=== PATIENT | male | born 1960 | race Caucasian/White ===

== ENCOUNTER 2016-09-03 15:29 | Inpatient (IN) | payer OTHER ==
[~2016-09-03] VITALS: Ht 180.3 cm; Wt 79.8 kg
[~2016-09-03 15:29] MED LIST: ALEVE220 M1 PO; ASPIR-TRIN325 MG PO; BACTRIM,SEPT1 TABLET PO; CRESTOR20 MG PO; DOCUSATE CALCI240 MG PO; HYDROCODON-ACE1 EAC7 PO; LIDOCAINE HCL20 ML MM; MOTRIN IB200 MG PO; PRINZIDE 20-251 EACH PO; SENNA8.6 M1 PO; TRAMADOL HCL50 MG PO
[2016-09-03 16:10] LABS: HEMATOCRIT 46.3 % (38.0-50.0); MCH 31.8 PG (29.0-34.0); MCV 90.8 FL (86-99); MEAN PLAT.VOLUME 10.9 uM^3 (9.0-12.4); PLATELET COUNT 139 K/uL (156-360); RBC DIS.WIDTH-CV 13.2 % (11.8-14.6); RBC DIS.WIDTH-SD 44.5 % (39-53); WHITE BLOOD COUNT 6.3 K/uL (4.1-10.2)
[2016-09-03 16:19] LABS: CHLORIDE 105 mEq/L (99-109); POTASSIUM 3.8 mEq/L (3.7-5.4); SODIUM 138 mEq/L (136-147)
[2016-09-03 16:21] LABS: GLUCOSE 89 mg/dL (70-99)
[2016-09-03 16:22] LABS: ANION GAP 10 MEQ/L (2-14)
[2016-09-03 16:25] LABS: GFR ESTIMATE (CALCULATED) > 59 mL/min/
[2016-09-03 16:26] LABS: UREA NITROGEN (BUN) 11 mg/dL (9-23)
[2016-09-03 16:31] LABS: TROP-I INTERPRETATION NEGATIVE; TROPONIN-I 0.29 ng/mL (0.0-0.30)
[2016-09-03 18:13] LABS: TROP-I INTERPRETATION INDETERMINATE; TROPONIN-I 0.32 ng/mL (0.0-0.30)
[2016-09-03 21:00] VITALS: BP 165/92
[2016-09-03 23:35] LABS: TROP-I INTERPRETATION NEGATIVE; TROPONIN-I 0.28 ng/mL (0.0-0.30)
[2016-09-03 23:55] VITALS: BP 132/83
[2016-09-04] VITALS (7 sets, daily range): BP systolic 134–167; BP diastolic 81–107
[2016-09-04 06:24] LABS: HEMATOCRIT 46.9 % (38.0-50.0); MCH 31.7 PG (29.0-34.0); MCHC 34.1 G/DL (30.0-36.0); MCV 92.9 FL (86-99); MEAN PLAT.VOLUME 11.3 uM^3 (9.0-12.4); PLATELET COUNT 134 K/uL (156-360); RBC DIS.WIDTH-CV 13.7 % (11.8-14.6); RBC DIS.WIDTH-SD 46.9 % (39-53); RED BLOOD COUNT 5.05 M/uL (4.00-5.50)
[2016-09-04 06:45] LABS: ANION GAP 7 MEQ/L (2-14); CHLORIDE 106 MEQ/L (99-109); GFR ESTIMATE (CALCULATED) > 59 mL/min/; GLUCOSE 99 mg/dL (70-99); POTASSIUM 4.3 MEQ/L (3.7-5.4); SAMPLE HEMOLYSIS CHECK 0; SAMPLE ICTERIC CHECK 0; SAMPLE LIPEMIA CHECK 0; SODIUM 139 MEQ/L (136-147); UREA NITROGEN (BUN) 13 mg/dL (9-23)
[2016-09-04 07:08] LABS: TROP-I INTERPRETATION INDETERMINATE; TROPONIN-I 0.35 ng/mL (0.0-0.30)
[2016-09-05 04:01] VITALS: BP 118/71
[2016-09-05 05:28] LABS: BASOPHIL COUNT 0.1 K/uL (0-0.1); EOSINOPHIL (%) 5.7 % (0-5); EOSINOPHIL COUNT 0.2 K/uL (0-0.3); IMMATURE GRANULOCYTE (%) 0.2 % (0.0-0.7); INSTRUMENT ABS NEUTROPHIL CT 1.2 K/uL; LYMPHOCYTE COUNT 2.2 K/uL (1.0-2.8); MCH 31.2 PG (29.0-34.0); MCHC 34.1 G/DL (30.0-36.0); MCV 91.5 FL (86-99); MONOCYTE (%) 10.6 % (3-12); MONOCYTE COUNT 0.4 K/uL (0-0.8); NEUTROPHIL (%) 28.5 % (45-76); NEUTROPHIL COUNT 1.2 K/uL (1.8-6.4); PLATELET COUNT 133 K/uL (156-360); RBC DIS.WIDTH-CV 13.3 % (11.8-14.6); RBC DIS.WIDTH-SD 45.1 % (39-53); RED BLOOD COUNT 5.03 M/uL (4.00-5.50)
[2016-09-05 05:47] LABS: ANION GAP 7 MEQ/L (2-14); CHLORIDE 106 MEQ/L (99-109); GFR ESTIMATE (CALCULATED) > 59 mL/min/; GLUCOSE 94 mg/dL (70-99); HDL CHOLESTEROL 29 MG/DL (Desirable>=40); LDL CHOLESTEROL 177 mg/dL (Desirable<100); NON-HDL CHOLESTEROL 209 mg/dL (Desirable<160); SAMPLE HEMOLYSIS CHECK 0; SAMPLE ICTERIC CHECK 0; SAMPLE LIPEMIA CHECK 0; SODIUM 138 MEQ/L (136-147); TOTAL CHOLESTEROL 238 mg/dL (Desirable<200); TRIGLYCERIDES 158 MG/DL (Normal: <150); UREA NITROGEN (BUN) 11 mg/dL (9-23)
[2016-09-05 07:00] VITALS: BP 124/82
[2016-09-05 07:03] LABS: Estimated Average Glucose 117 mg/dL (70-123); HEMOGLOBIN A1c (GLYCOHEMOGLOB) 5.7 % HGB (Below 5.7)
[2016-09-05 08:02] VITALS: BP 121/84
[2016-09-05] MEDS ORDERED: LO-DOSE ASPIRIN81 M2 PO (08:08)
[2016-09-05] MEDS ORDERED: BRILINTA90 MG PO (08:08)
[2016-09-05] MEDS ORDERED: LIPITOR40 MG PO (08:08)
[2016-09-05] MEDS ORDERED: LOPRESSOR25 MG PO (08:08)
[2016-09-05 11:00] VITALS: BP 124/87
[2016-09-05 11:34] VITALS: BP 141/89
[2016-09-05] MEDS ORDERED: LISINOPRIL-HCT1 EAC3 PO (13:00)
[2016-09-05] MEDS ORDERED: ATORVASTATIN CA80 MG PO (13:00)
[2016-09-05] MEDS ORDERED: NITROSTAT0.4 MG SL (13:00)
[2016-09-05] MEDS ORDERED: NICOTINE PATCH1 EAC2 TD (13:00)
== END 2016-09-05 15:21 | disposition home or self-care (01) | DRG 247 ==
LOC: EME 15:29 → EDOF 19:07 → 4EAST 19:07
PROVIDERS: Emergency Medicine; Hospitalist; Internal Medicine
DX: I25.110 Atherosclerotic heart disease of native coronary artery with unstable angina pectoris (principal); D69.6 Thrombocytopenia, unspecified; E78.5 Hyperlipidemia, unspecified; F12.90 Cannabis use, unspecified, uncomplicated; F17.210 Nicotine dependence, cigarettes, uncomplicated; I10 Essential (primary) hypertension; I25.2 Old myocardial infarction; R73.03 Prediabetes; Z79.82 Long term (current) use of aspirin; Z79.899 Other long term (current) drug therapy; Z80.7 Family history of other malignant neoplasms of lymphoid, hematopoietic and related tissues; Z82.5 Family history of asthma and other chronic lower respiratory diseases; Z91.14 Patient's other noncompliance with medication regimen; Z95.5 Presence of coronary angioplasty implant and graft; M54.9 Dorsalgia, unspecified
CPT/HCPCS: 71020; 71275; 80048; 80061; 83036; 83735; 84484; 85025; 85027; 85347; 93005; 99281; 99285; C1725; C1769; C1874; C1887; J1644; J1650; J2250; J2270; J3010; J3246; J7030

== ENCOUNTER 2017-05-16 15:39 | Inpatient (IN) | payer OTHER ==
[~2017-05-16] VITALS: Ht 180.3 cm; Wt 84.7 kg
[~2017-05-16 15:39] MED LIST changes: +ATORVASTATIN CA80 MG PO; +BRILINTA90 MG PO; +LIPITOR40 MG PO; +LISINOPRIL-HCT1 EAC3 PO; +LO-DOSE ASPIRIN81 M2 PO; +LOPRESSOR25 MG PO; +NICOTINE PATCH1 EAC2 TD; +NITROSTAT0.4 MG SL
[2017-05-16] MEDS ORDERED: BUSPIRONE HCL10 MG PO (16:07)
[2017-05-16] MEDS ORDERED: METRONIDAZOLE500 MG PO (16:08)
[2017-05-16] MEDS ORDERED: LISINOPRIL-HCT1 EACH PO (16:09)
[2017-05-16] MEDS ORDERED: ESCITALOPRAM OX10 MG PO (16:10)
[2017-05-16 16:38] LABS: HEMATOCRIT 42.8 % (38.0-50.0); HEMOGLOBIN 15.4 G/DL (12.5-16.6); MCH 33.2 PG (29.0-34.0); MCV 92.2 FL (86-99); PLATELET COUNT 137 K/uL (156-360); RBC DIS.WIDTH-CV 12.9 % (11.8-14.6); RBC DIS.WIDTH-SD 43.4 % (39-53); RED BLOOD COUNT 4.64 M/uL (4.00-5.50); WHITE BLOOD COUNT 5.3 K/uL (4.1-10.2)
[2017-05-16 16:47] LABS: CHLORIDE 105 mEq/L (99-109); SODIUM 138 mEq/L (136-147)
[2017-05-16 16:48] LABS: GLUCOSE 119 mg/dL (70-99)
[2017-05-16 16:51] LABS: SERUM ETHYL ALCOHOL < 10 mg/dL
[2017-05-16 16:52] LABS: GFR ESTIMATE (CALCULATED) > 59 mL/min/ (58.99-99999)
[2017-05-16 16:53] LABS: UREA NITROGEN (BUN) 16 mg/dL (9-23)
[2017-05-16 17:30] LABS: APPEARANCE CLEAR ((CLEAR)); BILIRUBIN NEGATIVE; BLOOD NEGATIVE; COLOR YELLOW ((YELLOW)); GLUCOSE (STRIP) NEGATIVE; KETONES NEGATIVE; LEUKOCYTES SMALL; NITRITE NEGATIVE; PROTEIN (STRIP) NEGATIVE; SPECIFIC GRAVITY 1.024 (1.000-1.030)
[2017-05-16 17:37] LABS: BACTERIA NONE SEEN /HPF; EPITHELIAL CELLS RARE /HPF; HYALINE CASTS 0-5 /LPF; MUCUS TRACE /LPF; RED BLOOD CELLS 0-5 /HPF (0-5); UCUL ADDED? NO; WHITE BLOOD CELLS 0-5 /HPF (0-5)
[2017-05-16 17:39] LABS: AMPHETAMINE NEGATIVE (500 ng/mL); BARBITURATES NEGATIVE (200 ng/mL); BENZODIAZEPINES NEGATIVE (150 ng/mL); BUPRENORPHINE NEGATIVE (10 ng/mL); COCAINE NEGATIVE (150 ng/mL); METHADONE NEGATIVE (200 ng/mL); METHAMPHETAMINE NEGATIVE (500 ng/mL); OPIATES (MORPHINE) NEGATIVE (100 ng/mL); OXYCODONE NEGATIVE (100 ng/mL); PHENCYCLIDINE NEGATIVE (25 ng/mL); PROPOXYPHENE NEGATIVE (300 ng/mL); THC CANNABINOIDS PRESUMPTIVE POSITIVE (50 ng/mL); TRICYCLIC ANTIDEPRESSANTS NEGATIVE (300 ng/mL)
[2017-05-16] MEDS ORDERED: LEXAPRO10 MG PO (18:39)
[2017-05-16] MEDS ORDERED: ZESTORETIC 20-1 EAC2 PO (18:39)
[2017-05-16 19:28] VITALS: BP 146/90
[2017-05-17 07:57] VITALS: BP 129/78
[2017-05-17 15:44] VITALS: BP 108/57
[2017-05-18 08:03] VITALS: BP 139/92
[2017-05-18 15:43] VITALS: BP 153/95
[2017-05-19 07:31] VITALS: BP 132/81
[2017-05-19] MEDS ORDERED: ESCITALOPRAM OX20 MG PO (09:24)
[2017-05-19] MEDS ORDERED: BUSPAR15 MG PO (09:24)
== END 2017-05-19 13:03 | disposition home or self-care (01) | DRG 885 ==
LOC: EME 15:39 → EDOF 18:09 → ENRESERV 19:21 → 1WEST 19:21
PROVIDERS: Emergency Medicine
DX: F33.2 Major depressive disorder, recurrent severe without psychotic features (principal); R45.851 Suicidal ideations; F12.20 Cannabis dependence, uncomplicated; F41.9 Anxiety disorder, unspecified; I10 Essential (primary) hypertension; I25.2 Old myocardial infarction; Z79.82 Long term (current) use of aspirin; Z95.5 Presence of coronary angioplasty implant and graft; F17.200 Nicotine dependence, unspecified, uncomplicated
CPT/HCPCS: 80048; 81003; 84999; 85027; 90839; 97150 GO; 97165 GO; 99281; 99285; G0480; Q0177